=== PATIENT | female | born 1940 | race Caucasian/White ===

== ENCOUNTER 2017-08-14 10:25 | Emergency (ER) | payer OTHER ==
[~2017-08-14] VITALS: Ht 162.6 cm; Wt 88.5 kg
[~2017-08-14 10:25] MED LIST: Clonazepam0.5 MG PO; FLUSAL2505 INH; GABA300 PO; HYDCHL12.5 PO; Hydrocodone-Ap1 EA20 PO; IBUP400 PO; IBUP800 PO; LEVSOD75 PO; LEVSOD88 PO; LISI5 PO; LORA.5 PO; Nitrostat0.3 MG SL; OMEP40CA12 PO; OXYACE5T PO; Percocet 5-3251 EACH PO; ROSU5 PO; RXHYD5325 PO; SERT100 PO
== END 2017-08-14 12:30 | disposition home or self-care (01) ==
LOC: ER 10:25
DX: H57.11 Ocular pain, right eye (principal); J45.909 Unspecified asthma, uncomplicated; I50.9 Heart failure, unspecified; E78.00 Pure hypercholesterolemia, unspecified; E03.9 Hypothyroidism, unspecified; K21.9 Gastro-esophageal reflux disease without esophagitis; Z88.2 Allergy status to sulfonamides; Z88.1 Allergy status to other antibiotic agents; Z88.5 Allergy status to narcotic agent; Z88.8 Allergy status to other drugs, medicaments and biological substances; Z91.09 Other allergy status, other than to drugs and biological substances; Z79.899 Other long term (current) drug therapy; W40.8XXA Explosion of other specified explosive materials, initial encounter; Y92.481 Parking lot as the place of occurrence of the external cause
CPT/HCPCS: 99283; J7030

== ENCOUNTER → 2019-10-31 | Outpatient (CLI) | payer OTHER | END | disposition home or self-care (01) | LOC: LAB 18:18 → LAB SHORT 18:18 | DX: E03.9 Hypothyroidism, unspecified (principal) | CPT/HCPCS: 84443 ==

== ENCOUNTER 2020-12-04 11:26 | Day surgery (SDC) | payer OTHER ==
[~2020-12-04 11:26] MED LIST changes: +ABILIFY MYCITE5 M2 PO; +ALBU90OI INH; +DICLOFENAC SOD100 GM TOP; +FLUTICASONE-SA1 EAC1 INH; +LEVSOD112 PO; +LOSA25 PO; +OXAYDO5 M1 PO; +Percocet 10-321 EACH PO; +Robaxin750 MG PO; +ZOCOR20 MG PO
--- NOTE | 2020-12-04 12:05 | NUR ---
DR. ABDI AT BEDSIDE TO SPEAK WITH PT. PT REPORTS HAVING A FULL BREAKFAST THIS MORNING ABOUT 730. DR. ABDI REPORTS PT UNABLE TO GO TO SURGERY UNTIL ABOUT 1530. ANNALISA Martins RN TO CONTACT DR. KIRKLAND TO DETERMINE HOW HE WOULD LIKE TO PROCEED.
--- NOTE | 2020-12-04 12:40 | NUR ---
PER MD. PTS PROCEDURE CANCELLED AND PLAN TO RESCHEDULE UNTIL TOMORROW. RIDE ARRANGED WITH TRANSPORT TO TAKE PT BACK TO [facility]. SPOKE WITH THE NURSE AT [facility] AND EXPLAIN PLAN AND INSTRUCTED PT TO BE NPO AFTER MIDNIGHT. NEW EKG COMPLETED PER DR. ABDI'S REQUEST.
--- NOTE | 2020-12-04 12:45 | NUR ---
PT ASSISTED INTO NEW ATTENDS AND INTO WHEELCHAIR. D/C'D VIA WHEELCHAIR.
[2020-12-05] MEDS ORDERED: OMEP20ER PO (06:37)
[2020-12-05] MEDS ORDERED: SERT100 PO (06:38)
[2020-12-05] MEDS ORDERED: IBUP200 PO (06:40)
== END 2020-12-04 22:42 | disposition home or self-care (01) ==
LOC: ORSCMMR 11:26 → ORD 12:30 → ORSCMMR 22:42
DX: S42.292A Other displaced fracture of upper end of left humerus, initial encounter for closed fracture (principal); Z53.9 Procedure and treatment not carried out, unspecified reason; S43.005A Unspecified dislocation of left shoulder joint, initial encounter
CPT/HCPCS: 93005; 93010; J2704

== ENCOUNTER 2020-12-05 11:20 | Inpatient (IN) | payer OTHER, MEDICARE ==
[~2020-12-05] VITALS: Wt 80.9 kg
[~2020-12-05 11:20] MED LIST changes: +IBUP200 PO; +OMEP20ER PO
--- NOTE | 2020-12-05 13:30 | NUR ---
pt watching tv awaiting the or assisted to bathroom twice l arm elev in sling npo
--- NOTE | 2020-12-05 15:23 | NUR ---
message left with anne hernandez pt's blood pressure
--- NOTE | 2020-12-05 16:59 | NUR ---
pt transported to day surg via bed
--- NOTE | 2020-12-05 17:41 | NUR ---
DR. KIRKLAND SPOKE WITH PT IN [facility] AND STATED HER PROCEDURE WOULD BE POSTPONED UNTIL TOMORROW MORNING. PT STATED UNDERSTANDING. PT TRANSFERED VIA BED BACK TO SURGICAL FLOOR.
--- NOTE | 2020-12-05 18:15 | NUR ---
PT EATING DINNER SURG SCHED FOR SAT AWAITING ORDERS
--- NOTE | 2020-12-06 05:38 | NUR ---
SHIFT SUMMARY PT AOX4. VSS. HYPERTENSIVE AT THE BEGINNING OF SHIFT. CALLED DR. KIRKLAND TO RECONCILE MEDS, GOT A TELEPHONE ORDER TO RESTART HOME MEDS IN EMR. [place]AN, ABILIFY AND OXY APAP WAS GIVEN LAST NIGHT. PT REPORTS PAIN ON LEFT SHOULDER. L SHOULDER HAS SOME BRUISING AND ARM SLING IN PLACED. I REPLACED HER OLD ARM SLING BECAUSE IT WAS DIRTY. PT STS THAT IT WAS AN OLD SLING FROM REHAB, THAT WAS PREVIOUSLY USED BY ANOTHER PT. PT HAD 4 SMALL FORMED BOWEL MOVEMENT. FREQUENT URINATION BUT DENIES DYSURIA. NPO AFTER MIDNIGHT. IV ON R HAND. SALINE LOCKED. CALL LIGHT WITHIN REACH. WILL PROVIDE REPORT TO ONCOMING NURSE.
--- NOTE | 2020-12-06 12:50 | NUR ---
PT APPEARS TO BE RESTING COMFORTABLY EYES CLOSED RESP E/U WAKES EASILY TO VERBAL STIMULI VERBALLY DENIES PAIN OR NAUSEA WIGGLES FINGERS AND TAKES DEEP BREATH WHEN ASKED TO WARM BLANKETS FOR COMFORT DRSG CDI WAITING FOR XRAY
--- NOTE | 2020-12-06 18:31 | NUR ---
SHIFT SUMMARY PT A&OX4, VSS, S/P TSA, AQUACEL CDI/IMMOBILIZER ON, WIGGLES FINGERS. PAIN MANAGED WITH 10 MG PERC, TYLENOL, IBUPROFEN. IVF @ 70 MLS/HR WITH ABX ORDERED. MABEL PO, DENIES N&V. VOIDING WELL IN BSC POST OP. STAND TRANSFER TO BSC/BED/CHAIR, UP TO CHAIR FOR DINNER. WILL REPORT TO ONCOMING NOC NORA.
[2020-12-07 05:07] LABS: BASOPHILS ABSOLUTE AUTO 0.01 K/mm3 (0.00-0.23); BASOPHILS PERCENT AUTO 0 % (0-2); EOSINOPHILS PERCENT AUTO 0 % (0-6); Hematocrit 31.9 % (33.0-51.0); Hemoglobin 10.5 g/dL (11.5-16.0); IMMATURE GRAN ABSOLUTE AUTO 0.03 K/mm3 (0.00-0.10); IMMATURE GRAN PERCENT AUTO 0 % (0-1); LYMPHOCYTES ABSOLUTE AUTO 1.36 K/mm3 (0.84-5.20); LYMPHOCYTES PERCENT AUTO 15 % (21-46); MONOCYTES ABSOLUTE AUTO 0.86 K/mm3 (0.16-1.47); MONOCYTES PERCENT AUTO 9 % (4-13); Mean Corpuscular HGB 30.8 pg (26.0-34.0); Mean Corpuscular HGB Conc 32.9 g/dL (31.5-36.5); Mean Corpuscular Volume 94 fL (80-100); Mean Platelet Volume 9.9 fL (9.1-12.4); NEUTROPHILS ABSOLUTE AUTO 6.85 K/mm3 (1.96-9.15); NEUTROPHILS PERCENT AUTO 75 % (41-73); Platelet Count 244 K/mm3 (150-400); RDW Coefficient Variation 13.9 % (11.7-14.2); RDW Standard Deviation 47.3 fL (35.1-46.3); Red Blood Cell Count 3.41 M/mm3 (3.80-5.20); White Blood Cell Count 9.11 K/mm3 (4.00-11.30)
[2020-12-07 05:36] LABS: Bun/Creatinine Ratio 16.5 (12.0-20.0); Creatinine, Blood 1.76 mg/dL (0.40-1.00); Potassium, Blood 3.8 mmol/L (3.5-5.5)
--- NOTE | 2020-12-07 07:46 | NUR ---
PT A/OX4. VSS ON RA. PAIN MANAGED WELL W/ CURRENT PAIN MED REGIME. UP TO TOILET W/ CANE AND MIN ASSIST. SLEEPING B/W CARE. USING CALL LIGHT TO MAKE NEEDS KNOWN.
--- NOTE | 2020-12-07 16:50 | NUR ---
SHIFT SUMMARY PT A&OX4, VSS, POD1 L TSA IMMOBILIZER, ELEVATED, WIGGLES FINGERS, CAP REFILL WNL. PAIN MANAGED WITH 10 MG PERC PRN. MBAEL PO. VOIDING/BM TODAY. AMB W/ FWW & SBA TO BRP. UP TO CHAIR FOR MEALS. WILL REPORT TO ONCOMING NOC NORA.
--- NOTE | 2020-12-08 03:39 | NUR ---
PT A/OX4, FORGETFUL AT TIMES. PAIN MANAGED W/ PERCOCET AND IBUPROFEN. PT C/O INCREASED PAIN, 5MG OXYCODONE GIVEN W/ GOOD EFFECT. PT C/O OF NO BM IN COUPLE DAYS, MILK OF MAG GIVEN AND EFFECTIVE. UP TO TOILET W/ CANE AND SPLINT IN PLACE. USING CALL LIGHT TO MAKE NEEDS KNOWN. SLEEPING B/W CARE.
--- NOTE | 2020-12-08 12:05 | NUR ---
[facility]ul [facility]as, pt sleeping in bed, bed in lowest position, call light within reach, be rails up x 2
[2020-12-08 13:09] LABS: SARS-Cov-2 (COVID-19) PCR, MMC NEGATIVE (NEGATIVE)
--- NOTE | 2020-12-08 15:59 | NUR ---
patient has worked with PT/OT today; both modalities recommend SNF. 1530- rounding on pt, who is sitting up in chair with belongings packed; inquires as to when transport would be here to transfer her to SNF; this RN informed pt insurance approval is under review r/t home situation. pt informs this RN her daughter had stayed with her to assist with ADL's prior to surgical intervention. Her daughter does not normally live with her, and she has no paid caregiver who comes in to provide care.
--- NOTE | 2020-12-08 17:03 | NUR ---
shift summary: vss, no acute changes, pt remained a/o x 4, pleasant/cooperative. pt up to chair for meals and intermittently t/o shift. Operative LUE remained in immobilizer. pt utilizes cane to ambulated to bathroom and in hallway with standby assist. pt requires assistance with ADL's. Pt tolerated medicating for pain per MAR, reports pain controlled to "tolerable" levels upon reassessment. pt tolerated PO intake well, denies n/v. pt voiding and passing flatus this shift, denies N/V. L shoulder dressing remains c/d/i, no shadowing.
--- NOTE | 2020-12-09 04:20 | NUR ---
SHIFT SUMMARY NO ACUTE CHANGES THIS SHIFT. 2 ROXICODONE + SCHEDULED TYLENOL FOR PAIN. UP TO BATHROOM WITH 1 STANDBY ASSIST. LEFT ARM REMAINS IN IMMOBILIZER AND AQUACEL DRESSING REMAINS CDI. CARE MANAGMENT INVOLVED WITH DISCHARGE PLANNING. PT USES CALL LIGHT APPROPRIATELY.
--- NOTE | 2020-12-09 14:11 | NUR ---
12/09/20 1411 Jessica Maddox VERIFICATIONS: EDIT CHART.
--- NOTE | 2020-12-09 15:41 | NUR ---
PT WAS NOTIFIED EARLIER TODAY THAT HER INSURANCE DECLINED TO PAY FOR RESIDENTIAL. PT IS ATTEMPTING TO CONTEST HER DISCHARGE AT THIS TIME. SHE HAS CONTACTED [facility] SPECIFIED ON THE MEDICARE FORM. SHANNA MUNSON HAS BEEN NOTIFIED THAT PT IS CONTESTING HER DISCHARGE.
--- NOTE | 2020-12-09 16:28 | NUR ---
CONTESTED DISCHARGE PT CONTACTED PRO TO CONTEST HER DISCHARGE. MOHAN SHEETS FROM CARE MANAGEMENT NOTIFIED THIS RN THAT SHE NEEDED TO CONTACT [facility] . CUSTOMER SERVICE AT [facility] NOTIFIED THIS RN THAT SHE SHOULD CONTACK [facility] NUMBER IN ORDER TO CONTEST THE DISCHARGE. MOHAN SHEETS NOTIFIED THAT [facility] IS NOT INVOLVED IN CONTESTING THE DISCHARGE PER THE INTERNET CONSULTANT. PT IS AWAITING FURTHER INSTRUCTION IN PROCESS TO CONTEST DISCHARGE.
--- NOTE | 2020-12-09 16:48 | NUR ---
SHIFT SUMMARY PT IS POD#3 FROM L REVERSE TSA WITH DR. KIRKLAND. PAIN MANAGED WITH PO PAIN MEDICATION. PT WAS HOPING TO RETURN TO [facility] FOR SNF, PER CARE MANAGEMENT HER INSURANCE DECLINED. PT IS CONTESTING HER DISCHARGE AND REMAINS IN THE HOSPITAL AT THIS TIME. PT IS A 1 PERSON ASSIST WITH CANE WHEN AMBULATING. SHE DOES REQUIRE MUCH ASSISTANCE WITH ADL'S. WILL MONITOR UNTIL REPORT TO NOC RN.
--- NOTE | 2020-12-10 07:08 | NUR ---
SHIFT SUMMARY POD4 L REVERSE TOTAL SHOULDER, A/O X4, VSS, TOLERATING PO, PILLS IN APPLESAUCE, SBA TO BATHROOM, NWB LUE, PAIN MANAGED PER EMAR, NO ACUTE EVENTS THIS SHIFT. CALL LIGHT IN REACH, REPORT GIVEN TO DAY RN.
--- NOTE | 2020-12-10 16:29 | NUR ---
SHIFT SUMMARY PT A&OX4, VSS, POD4 L REVERSE TSA, IMMOBILIZER ON, WIGGLES FINGERS, CAP REFILL WNL. PAIN MANAGED WITH 10 MG PERC AND ALT MOTRIN/TYLENOL. MABEL PO. VOIDING WELL. AMB W/CANE, SBA, UP TO CHAIR T/O SHIFT. WILL REPORT TO ONCOMING NOC NORA.
--- NOTE | 2020-12-10 20:01 | NUR ---
IN CHAIR. RN NOTIFIED
--- NOTE | 2020-12-11 05:05 | NUR ---
SHIFT SUMMARY POD5 L REVERSE TSA. NO ACUTE CHANGES OVERNIGHT. R ARM WITH SLING. PT REPORTS MINIMAL PAIN. PT DENIES N/T. WIGGLES FINGERS WITH CAP REFILL WNL. PAIN MANAGED WITH TYLENOL AND OXICODONE. PT TOLERATING PO INTAKE. DENIES N/V. VOIDING WELL. PT HAD 1 SMEAR BM. AMBULATES WITH 1 SBA WITH HER CANE. CALL LIGHT WITHIN REACH. PLAN: WAITING FOR SNF PLACEMENT APPROVAL FROM INSURANCE. WILL PROVIDE REPORT TO ONCOMING NURSE.
[2020-12-11 12:32] LABS: SARS-Cov-2 (COVID-19) PCR, MMC NEGATIVE (NEGATIVE)
--- NOTE | 2020-12-11 13:22 | NUR ---
DISCHARGE SUMMARY PT A&OX4, VSS, VOIDING, TOLERATING PO, AMBULATING W/CANE TO BRP, UP TO CHAIR, PAIN MANAGED WITH 10 MG PERC, MOTRIN AND TYLENOL. REPORT PROVIDED TO BLAS AT [facility]. SCRIPT IN PACKET FOR TRANSPORT TO PROVIDE TO SNF.
== END 2020-12-11 13:58 | DRG 483 ==
LOC: ORSCMMR 11:20 → SURS 11:20 → ORSCMMR 11:21 → SURS 12:09 → ORSCMMR 12-06 11:57 → SURS 12-07 23:11 → ORSCMMR 12-07 23:11 → SURS 12-11 13:58
PROVIDERS: ADMIT Orthopaedic Surgery
PROC: 0RRK00Z Replacement of Left Shoulder Joint with Reverse Ball and Socket Synthetic Substitute, Open Approach (ICD-10-PCS; principal; 2020-12-05)
DX: S42.202A Unspecified fracture of upper end of left humerus, initial encounter for closed fracture (principal); Z20.822 Contact with and (suspected) exposure to COVID-19; J45.909 Unspecified asthma, uncomplicated; E78.5 Hyperlipidemia, unspecified; I10 Essential (primary) hypertension; E03.9 Hypothyroidism, unspecified; M06.9 Rheumatoid arthritis, unspecified; Z79.899 Other long term (current) drug therapy; Z88.1 Allergy status to other antibiotic agents; Z88.5 Allergy status to narcotic agent; Z88.8 Allergy status to other drugs, medicaments and biological substances; W18.30XA Fall on same level, unspecified, initial encounter; Y92.009 Unspecified place in unspecified non-institutional (private) residence as the place of occurrence of the external cause; Z88.2 Allergy status to sulfonamides
CPT/HCPCS: 36415; 73030; 80048; 85025; 94640; 94760; 97110; 97116; 97162; 97166; 97530; 97535; A9270; C1776; J0171; J0690; J1100; J2370; J2405; J2704; J3010; J7120; U0004

== ENCOUNTER → 2020-12-24 | Outpatient (CLI) | payer OTHER | END | disposition home or self-care (01) | LOC: LAB SHORT 19:22 → LAB 19:22 | DX: N39.0 Urinary tract infection, site not specified (principal) | CPT/HCPCS: 87077; 87086; 87186 ==

== ENCOUNTER → 2021-01-23 | Outpatient (CLI) | payer OTHER ==
[2021-01-23 13:56] LABS: Source, Urine Clean Catch
[2021-01-23 15:06] LABS: Appearance, Urine Hazy (Clear); Bilirubin, Urine Neg (Neg); Blood, Urine 2+ (Neg); Color, Urine Yellow (P-Yellow); Glucose Qualitative, Urine Neg (Neg); Ketones, Urine Neg (Neg); Leukocyte Esterase, Urine Neg (Neg); Nitrite, Urine Neg (Neg); Protein, Urine Neg (Neg); Urobilinogen, Urine NORM (Normal)
[2021-01-23 15:37] LABS: Squamous Epithelial Cells Few /hpf (Few)
[2021-01-23 15:38] LABS: Bacteria Many /hpf
== END | disposition home or self-care (01) ==
LOC: LAB SHORT 13:52
PROVIDERS: Family Medicine
DX: E78.5 Hyperlipidemia, unspecified (principal); I10 Essential (primary) hypertension
CPT/HCPCS: 81001; 87077; 87086; 87186

== ENCOUNTER → 2021-01-29 | Outpatient (CLI) | payer OTHER | END | disposition home or self-care (01) | LOC: LAB SHORT 09:15 → LAB FUT 01-28 12:40 | DX: R10.9 Unspecified abdominal pain (principal) | CPT/HCPCS: 87086 ==

== ENCOUNTER 2023-04-15 11:34 | Emergency (ER) | payer OTHER ==
[~2023-04-15] VITALS: Ht 162.6 cm; Wt 77.1 kg
[2023-04-15 11:38] VITALS: BP 130/84
[2023-04-15 12:54] LABS: BASOPHILS ABSOLUTE AUTO 0.02 K/mm3 (0.00-0.23); BASOPHILS PERCENT AUTO 1 % (0-2); EOSINOPHILS PERCENT AUTO 3 % (0-6); Hematocrit 39.7 % (33.0-51.0); Hemoglobin 13.2 g/dL (11.5-16.0); IMMATURE GRAN PERCENT AUTO 0 % (0-1); LYMPHOCYTES ABSOLUTE AUTO 1.31 K/mm3 (0.84-5.20); LYMPHOCYTES PERCENT AUTO 33 % (21-46); MONOCYTES PERCENT AUTO 10 % (4-13); Mean Corpuscular HGB 29.1 pg (26.0-34.0); Mean Corpuscular HGB Conc 33.2 g/dL (31.5-36.5); Mean Corpuscular Volume 88 fL (80-100); Mean Platelet Volume 10.1 fL (9.1-12.4); NEUTROPHILS ABSOLUTE AUTO 2.19 K/mm3 (1.96-9.15); NEUTROPHILS PERCENT AUTO 54 % (41-73); Platelet Count 162 K/mm3 (150-400); RDW Coefficient Variation 12.6 % (11.7-14.2); RDW Standard Deviation 40.4 fL (35.1-46.3); Red Blood Cell Count 4.53 M/mm3 (3.80-5.20); White Blood Cell Count 4.02 K/mm3 (4.00-11.30)
[2023-04-15 13:15] LABS: Albumin, Blood 3.3 g/dL (3.4-5.0); Bilirubin, Total 0.5 mg/dL (0.1-1.0); Bun/Creatinine Ratio 11.5 (12.0-20.0); Calcium, Blood 8.7 mg/dL (8.5-10.1); Creatinine, Blood 0.96 mg/dL (0.40-1.00); Globulin, Blood 3.3 g/dL (2.2-4.0); Potassium, Blood 4.2 mmol/L (3.5-5.5); Total Protein, Blood 6.6 g/dL (6.4-8.2)
== END 2023-04-15 15:07 | disposition home or self-care (01) ==
LOC: ER 11:34
PROVIDERS: Physician Assistant
DX: S39.011A Strain of muscle, fascia and tendon of abdomen, initial encounter (principal); E03.9 Hypothyroidism, unspecified; K21.9 Gastro-esophageal reflux disease without esophagitis; E78.5 Hyperlipidemia, unspecified; J45.909 Unspecified asthma, uncomplicated; X50.0XXA Overexertion from strenuous movement or load, initial encounter; Z88.2 Allergy status to sulfonamides; Z88.8 Allergy status to other drugs, medicaments and biological substances; Z88.1 Allergy status to other antibiotic agents; Z88.5 Allergy status to narcotic agent; Z79.899 Other long term (current) drug therapy
CPT/HCPCS: 71101; 74176; 80053; 85025; 96374; 99284-25; J3010

== ENCOUNTER → 2023-08-10 | Outpatient (CLI) | payer OTHER | LOC: LAB 16:13 → LAB SHORT 16:13 | DX: E03.9 Hypothyroidism, unspecified (principal); E55.9 Vitamin D deficiency, unspecified | CPT/HCPCS: 82306; 84443 ==

== ENCOUNTER → 2024-02-03 | Outpatient (CLI) | payer OTHER | END | disposition home or self-care (01) | LOC: LAB 16:26 → LAB SHORT 16:26 | DX: E03.9 Hypothyroidism, unspecified (principal) | CPT/HCPCS: 84443 ==

== ENCOUNTER → 2024-03-08 | Outpatient (CLI) | payer OTHER ==
[2024-03-08 15:44] LABS: BASOPHILS ABSOLUTE AUTO 0.02 K/mm3 (0.00-0.23); BASOPHILS PERCENT AUTO 1 % (0-2); EOSINOPHILS ABSOLUTE AUTO 0.13 K/mm3 (0.00-0.68); EOSINOPHILS PERCENT AUTO 3 % (0-6); Hematocrit 44.6 % (33.0-51.0); Hemoglobin 14.8 g/dL (11.5-16.0); IMMATURE GRAN ABSOLUTE AUTO 0.01 K/mm3 (0.00-0.10); IMMATURE GRAN PERCENT AUTO 0 % (0-1); LYMPHOCYTES ABSOLUTE AUTO 1.73 K/mm3 (0.84-5.20); LYMPHOCYTES PERCENT AUTO 40 % (21-46); MONOCYTES ABSOLUTE AUTO 0.31 K/mm3 (0.16-1.47); MONOCYTES PERCENT AUTO 7 % (4-13); Mean Corpuscular HGB Conc 33.2 g/dL (31.5-36.5); Mean Corpuscular Volume 87 fL (80-100); Mean Platelet Volume 10.8 fL (9.1-12.4); NEUTROPHILS ABSOLUTE AUTO 2.08 K/mm3 (1.96-9.15); NEUTROPHILS PERCENT AUTO 49 % (41-73); Platelet Count 200 K/mm3 (150-400); RDW Coefficient Variation 13.3 % (11.7-14.2); Red Blood Cell Count 5.11 M/mm3 (3.80-5.20); White Blood Cell Count 4.28 K/mm3 (4.00-11.30)
[2024-03-08 15:52] LABS: International Normalized Ratio 0.98; Prothrombin Time Results 10.5 Sec (9.7-11.5)
== END | disposition home or self-care (01) ==
LOC: LAB 14:52 → LAB SHORT 14:52
PROVIDERS: Nurse Practitioner Family
DX: E03.9 Hypothyroidism, unspecified (principal); R58 Hemorrhage, not elsewhere classified
CPT/HCPCS: 84443; 85025; 85610

== ENCOUNTER → 2024-07-31 | Outpatient (CLI) | payer OTHER | LOC: LAB 11:15 → LAB SHORT 11:15 | DX: E03.9 Hypothyroidism, unspecified (principal) | CPT/HCPCS: 84443 ==

== ENCOUNTER → 2024-11-15 | Outpatient (CLI) | payer OTHER ==
[2024-11-15 19:16] LABS: Bacterial Vaginosis PCR Negative (NEGATIVE); Candida Group, PCR NOT DETECTED (NOT DETECT); Candida glabrata-krusei, PCR NOT DETECTED (NOT DETECT)
== END ==
LOC: LAB 15:00 → LAB SHORT 15:00
PROVIDERS: Family Medicine
DX: N76.0 Acute vaginitis (principal)
CPT/HCPCS: 81515

== ENCOUNTER 2025-01-12 14:29 | Emergency (ER) | payer OTHER ==
[~2025-01-12] VITALS: Ht 162.6 cm; Wt 95.2 kg
[2025-01-12 15:06] LABS: BASOPHILS ABSOLUTE AUTO 0.03 K/mm3 (0.00-0.23); BASOPHILS PERCENT AUTO 1 % (0-2); EOSINOPHILS ABSOLUTE AUTO 0.03 K/mm3 (0.00-0.68); EOSINOPHILS PERCENT AUTO 1 % (0-6); Hematocrit 42.0 % (33.0-51.0); Hemoglobin 14.3 g/dL (11.5-16.0); IMMATURE GRAN ABSOLUTE AUTO 0.01 K/mm3 (0.00-0.10); IMMATURE GRAN PERCENT AUTO 0 % (0-1); LYMPHOCYTES ABSOLUTE AUTO 1.15 K/mm3 (0.84-5.20); LYMPHOCYTES PERCENT AUTO 18 % (21-46); MONOCYTES ABSOLUTE AUTO 0.28 K/mm3 (0.16-1.47); MONOCYTES PERCENT AUTO 4 % (4-13); Mean Corpuscular HGB Conc 34.0 g/dL (31.5-36.5); Mean Corpuscular Volume 86 fL (80-100); NEUTROPHILS ABSOLUTE AUTO 5.05 K/mm3 (1.96-9.15); NEUTROPHILS PERCENT AUTO 77 % (41-73); NRBC ABSOLUTE 0.00 K/mm3 (0.00-0.02); NRBC Auto 0.0 /100 WBC (0.0-0.2); Platelet Count 192 K/mm3 (150-400); RDW Coefficient Variation 12.5 % (11.7-14.2); RDW Standard Deviation 39.5 fL (35.1-46.3)
[2025-01-12 15:13] LABS: Source, Urine Clean Catch
[2025-01-12 15:15] LABS: Bilirubin, Urine Neg (Neg); Glucose Qualitative, Urine Neg (Neg); Ketones, Urine Neg (Neg); Leukocyte Esterase, Urine 1+ (Neg); Protein, Urine Neg (Neg); Specific Gravity, Urine 1.010 (1.003-1.022); Urobilinogen, Urine NORM (Normal)
[2025-01-12 15:17] LABS: Color, Urine Yellow (P-Yellow)
[2025-01-12 15:21] LABS: Ethanol (Alcohol), Blood, Med <3 mg/dL
[2025-01-12 15:26] LABS: U Amphetamine Screen Not Detected; U Barbituate Screen Not Detected; U Benzodiazapine Screen Not Detected; U Buprenorphine Screen Not Detected; U Cannabinoids Screen Not Detected; U Cocaine Screen Not Detected; U Methadone Screen Not Detected; U Methamphetamine Screen Not Detected; U Opiates Screen Not Detected; U Oxycodone Screen DETECTED; U Phencyclidine Screen Not Detected
[2025-01-12 15:32] LABS: Salicylate <1.7 mg/dL (2.8-20.0); Thyroid Stimulating Hormone 0.835 uIU/mL (0.360-4.800)
[2025-01-12 15:33] LABS: Acetaminophen, Random <2.0 ug/mL (10.0-30.0); Alanine Aminotransfer (ALT/SGP 21 U/L (12-78); Albumin, Blood 3.6 g/dL (3.4-5.0); Albumin/Globulin Ratio 0.9 (0.8-1.8); Anion Gap 9 mmol/L (3-11); Aspartate Aminotrans (AST/SGOT 26 U/L (12-37); Bilirubin, Total 0.5 mg/dL (0.1-1.0); Blood Urea Nitrogen 12 mg/dL (8-24); CO2, Blood 24 mmol/L (21-32); Calcium, Blood 9.1 mg/dL (8.5-10.1); Chloride, Blood 110 mmol/L (98-108); Creatinine, Blood 0.89 mg/dL (0.40-1.00); Globulin, Blood 3.9 g/dL (2.2-4.0); Glucose, Blood 129 mg/dL (70-99); Potassium, Blood 4.1 mmol/L (3.5-5.5); Sodium, Blood 139 mmol/L (136-145); Total Protein, Blood 7.5 g/dL (6.4-8.2)
[2025-01-12 19:44] LABS: Alanine Aminotransfer (ALT/SGP 21.0 U/L (12-78); Albumin, Blood 3.6 g/dL (3.4-5.0); Albumin/Globulin Ratio 0.9 (0.8-1.8); Anion Gap 10.0 mmol/L (3-11); Aspartate Aminotrans (AST/SGOT 25.0 U/L (12-37); Bilirubin, Total 0.7 mg/dL (0.1-1.0); Blood Urea Nitrogen 11.0 mg/dL (8-24); CO2, Blood 24.0 mmol/L (21-32); Calcium, Blood 9.2 mg/dL (8.5-10.1); Chloride, Blood 109.0 mmol/L (98-108); Creatinine, Blood 0.86 mg/dL (0.40-1.00); Globulin, Blood 3.9 g/dL (2.2-4.0); Glucose, Blood 131.0 mg/dL (70-99); Potassium, Blood 3.9 mmol/L (3.5-5.5); Sodium, Blood 139.0 mmol/L (136-145); Total Protein, Blood 7.5 g/dL (6.4-8.2)
[2025-01-12 20:07] VITALS: BP 159/78
== END 2025-01-12 19:57 | disposition home or self-care (01) ==
LOC: ER 14:29
PROVIDERS: Emergency Medicine
DX: T42.6X1A Poisoning by other antiepileptic and sedative-hypnotic drugs, accidental (unintentional), initial encounter (principal); T40.2X1A Poisoning by other opioids, accidental (unintentional), initial encounter; M19.90 Unspecified osteoarthritis, unspecified site; K21.9 Gastro-esophageal reflux disease without esophagitis; E03.9 Hypothyroidism, unspecified; J45.909 Unspecified asthma, uncomplicated; Z79.899 Other long term (current) drug therapy; Z79.51 Long term (current) use of inhaled steroids; Z88.2 Allergy status to sulfonamides; Z88.5 Allergy status to narcotic agent; Z91.041 Radiographic dye allergy status; Z88.8 Allergy status to other drugs, medicaments and biological substances
CPT/HCPCS: 80053; 80320; 81001; 83735; 84439; 84443; 85025; 87086; 93005; 93010; 99284-25; G0480

== ENCOUNTER 2025-02-10 13:01 | Emergency (ER) | payer OTHER ==
[~2025-02-10] VITALS: Ht 157.5 cm; Wt 75.8 kg
[2025-02-10 13:24] VITALS: BP 135/98
[2025-02-10 13:45] LABS: BASOPHILS ABSOLUTE AUTO 0.03 K/mm3 (0.00-0.23); BASOPHILS PERCENT AUTO 0 % (0-2); EOSINOPHILS ABSOLUTE AUTO 0.01 K/mm3 (0.00-0.68); EOSINOPHILS PERCENT AUTO 0 % (0-6); Hematocrit 42.2 % (33.0-51.0); Hemoglobin 14.7 g/dL (11.5-16.0); IMMATURE GRAN ABSOLUTE AUTO 0.02 K/mm3 (0.00-0.10); IMMATURE GRAN PERCENT AUTO 0 % (0-1); LYMPHOCYTES ABSOLUTE AUTO 1.69 K/mm3 (0.84-5.20); LYMPHOCYTES PERCENT AUTO 23 % (21-46); MONOCYTES ABSOLUTE AUTO 0.50 K/mm3 (0.16-1.47); MONOCYTES PERCENT AUTO 7 % (4-13); Mean Corpuscular HGB Conc 34.8 g/dL (31.5-36.5); Mean Corpuscular Volume 86 fL (80-100); NEUTROPHILS ABSOLUTE AUTO 5.19 K/mm3 (1.96-9.15); NEUTROPHILS PERCENT AUTO 70 % (41-73); NRBC ABSOLUTE 0.00 K/mm3 (0.00-0.02); NRBC Auto 0.0 /100 WBC (0.0-0.2); Platelet Count 217 K/mm3 (150-400); RDW Coefficient Variation 13.3 % (11.7-14.2); RDW Standard Deviation 41.2 fL (35.1-46.3)
[2025-02-10 14:13] LABS: Alanine Aminotransfer (ALT/SGP 30.0 U/L (12-78); Albumin, Blood 4.0 g/dL (3.4-5.0); Albumin/Globulin Ratio 1.2 (0.8-1.8); Anion Gap 11.0 mmol/L (3-11); Aspartate Aminotrans (AST/SGOT 33.0 U/L (12-37); Bilirubin, Total 0.5 mg/dL (0.1-1.0); Blood Urea Nitrogen 11.0 mg/dL (8-24); CO2, Blood 23.0 mmol/L (21-32); Calcium, Blood 9.5 mg/dL (8.5-10.1); Chloride, Blood 108.0 mmol/L (98-108); Creatinine, Blood 0.96 mg/dL (0.40-1.00); Globulin, Blood 3.3 g/dL (2.2-4.0); Glucose, Blood 153.0 mg/dL (70-99); Potassium, Blood 3.7 mmol/L (3.5-5.5); Sodium, Blood 138.0 mmol/L (136-145); Total Protein, Blood 7.3 g/dL (6.4-8.2)
[2025-02-10] MEDS ORDERED: Pantoprazole Sodium 40 MG Injection IV ONE (15:05)
[2025-02-10] MEDS ORDERED: Ondansetron HCl 2 MG / ML 2ML Vial IV ONE (15:05)
[2025-02-10] MEDS ORDERED: Milk 150ML/Molasses 150ML (300ML Total) PR ONE (17:00)
== END 2025-02-10 18:17 | disposition home or self-care (01) ==
LOC: ER 13:01
PROVIDERS: Physician Assistant
DX: K56.609 Unspecified intestinal obstruction, unspecified as to partial versus complete obstruction (principal); J18.9 Pneumonia, unspecified organism; I10 Essential (primary) hypertension; Z88.2 Allergy status to sulfonamides; Z88.8 Allergy status to other drugs, medicaments and biological substances; Z88.5 Allergy status to narcotic agent; Z88.1 Allergy status to other antibiotic agents; Z79.899 Other long term (current) drug therapy; Z79.890 Hormone replacement therapy
CPT/HCPCS: 74018; 74177; 80053; 85025; A9270; J2405; J2470; Q9967

== ENCOUNTER 2025-02-15 10:31 | Emergency (ER) | payer OTHER ==
[~2025-02-15] VITALS: Ht 162.6 cm; Wt 72.6 kg
[2025-02-15 11:05] LABS: BASOPHILS ABSOLUTE AUTO 0.02 K/mm3 (0.00-0.23); BASOPHILS PERCENT AUTO 0 % (0-2); EOSINOPHILS ABSOLUTE AUTO 0.01 K/mm3 (0.00-0.68); EOSINOPHILS PERCENT AUTO 0 % (0-6); Hematocrit 42.2 % (33.0-51.0); Hemoglobin 14.6 g/dL (11.5-16.0); IMMATURE GRAN ABSOLUTE AUTO 0.01 K/mm3 (0.00-0.10); IMMATURE GRAN PERCENT AUTO 0 % (0-1); LYMPHOCYTES ABSOLUTE AUTO 1.56 K/mm3 (0.84-5.20); LYMPHOCYTES PERCENT AUTO 23 % (21-46); MONOCYTES ABSOLUTE AUTO 0.43 K/mm3 (0.16-1.47); MONOCYTES PERCENT AUTO 6 % (4-13); Mean Corpuscular HGB Conc 34.6 g/dL (31.5-36.5); Mean Corpuscular Volume 88 fL (80-100); NEUTROPHILS ABSOLUTE AUTO 4.76 K/mm3 (1.96-9.15); NEUTROPHILS PERCENT AUTO 70 % (41-73); NRBC ABSOLUTE 0.00 K/mm3 (0.00-0.02); NRBC Auto 0.0 /100 WBC (0.0-0.2); Platelet Count 238 K/mm3 (150-400); RDW Coefficient Variation 13.7 % (11.7-14.2); RDW Standard Deviation 43.9 fL (35.1-46.3)
[2025-02-15 11:32] LABS: Alanine Aminotransfer (ALT/SGP 34.0 U/L (12-78); Albumin, Blood 3.9 g/dL (3.4-5.0); Albumin/Globulin Ratio 1.1 (0.8-1.8); Anion Gap 13.0 mmol/L (3-11); Aspartate Aminotrans (AST/SGOT 39.0 U/L (12-37); Bilirubin, Total 0.7 mg/dL (0.1-1.0); Blood Urea Nitrogen 11.0 mg/dL (8-24); CO2, Blood 23.0 mmol/L (21-32); Calcium, Blood 9.3 mg/dL (8.5-10.1); Chloride, Blood 107.0 mmol/L (98-108); Creatinine, Blood 0.96 mg/dL (0.40-1.00); Globulin, Blood 3.5 g/dL (2.2-4.0); Glucose, Blood 119.0 mg/dL (70-99); Magnesium, Blood 2.2 mg/dL (1.6-2.4); Phosphorus, Blood 1.9 mg/dL (2.5-4.9); Potassium, Blood 3.9 mmol/L (3.5-5.5); Sodium, Blood 139.0 mmol/L (136-145); Total Protein, Blood 7.4 g/dL (6.4-8.2)
[2025-02-15] MEDS ORDERED: Lactulose 200 GM/300 ML Enema 300ML BTL PR ONE (12:05)
[2025-02-15] MEDS ORDERED: Lidocaine 2% Viscous Soln 15 ML UDC PO ONE (12:55)
[2025-02-15 15:22] VITALS: BP 169/66
[2025-02-15] MEDS ORDERED: NYST237S MT (15:31)
== END 2025-02-15 16:00 | disposition home or self-care (01) ==
LOC: ER 10:31
PROVIDERS: Physician Assistant
DX: K59.00 Constipation, unspecified (principal); R19.7 Diarrhea, unspecified; I10 Essential (primary) hypertension; Z88.2 Allergy status to sulfonamides; Z88.5 Allergy status to narcotic agent; Z88.8 Allergy status to other drugs, medicaments and biological substances; Z91.041 Radiographic dye allergy status; Z79.899 Other long term (current) drug therapy
CPT/HCPCS: 74018; 74177; 80053; 83735; 84100; 85025; 87015; 87045; 87046; 87205; 87899; 93005; 93010; 99284-25; A9270; Q9967

== ENCOUNTER 2025-03-06 12:47 | Emergency (ER) | payer OTHER ==
[~2025-03-06] VITALS: Ht 152.4 cm; Wt 72.6 kg
[~2025-03-06 12:47] MED LIST changes: +NYST237S MT
[2025-03-06] MEDS ORDERED: FentaNYL Citrate 50 MCG/ML 2 ML Injection IV ONE (13:05)
[2025-03-06] MEDS ORDERED: Ondansetron HCl 2 MG / ML 2ML Vial IV ONE (13:05)
[2025-03-06] MEDS ORDERED: OxyCODONE 10/Acetamin 325 TABLET PO ONE (14:35)
[2025-03-06] MEDS ORDERED: OxyCODONE 5 mg/Acetamin 325 mg TABLET PO PRN (16:40)
[2025-03-06] MEDS ORDERED: NYSTATIN100000 U13 PO (17:15)
[2025-03-06] MEDS ORDERED: Bentyl10 MG PO (17:16)
[2025-03-06] MEDS ORDERED: NYSTOP15 GM TOP (17:17)
[2025-03-06] MEDS ORDERED: DONEPEZIL HCL5 M2 PO (17:17)
[2025-03-06] MEDS ORDERED: ESTRADIOL42.5 GM VG (17:18)
[2025-03-06] MEDS ORDERED: TRELEGY ELLIPT1 EACH IH (17:18)
[2025-03-06] MEDS ORDERED: Diflucan100 MG PO (17:20)
[2025-03-06] MEDS ORDERED: Albuterol HFA200 ACT/6.7 GM INH INH PRN (22:10)
[2025-03-07 07:27] VITALS: BP 120/68
[2025-03-07] MEDS ORDERED: VITAMIN D310 MC4 PO (11:10)
[2025-03-07] MEDS ORDERED: DICLOFENAC SOD100 GM (11:13)
[2025-03-07] MEDS ORDERED: DOCU100 PO (11:14)
[2025-03-07] MEDS ORDERED: FAMO20 PO (11:15)
[2025-03-07] MEDS ORDERED: POLY500 PO (11:16)
[2025-03-07] MEDS ORDERED: CALCIUM CARBON500 M1 PO (11:20)
[2025-03-07] MEDS ORDERED: SENNA LAXATIVE8.6 MG PO (11:22)
== END 2025-03-07 19:30 | disposition home or self-care (01) ==
LOC: ER 12:47
DX: S42.211A Unspecified displaced fracture of surgical neck of right humerus, initial encounter for closed fracture (principal); S42.291A Other displaced fracture of upper end of right humerus, initial encounter for closed fracture; S42.251A Displaced fracture of greater tuberosity of right humerus, initial encounter for closed fracture; S00.81XA Abrasion of other part of head, initial encounter; I10 Essential (primary) hypertension; K21.9 Gastro-esophageal reflux disease without esophagitis; E78.5 Hyperlipidemia, unspecified; Z23 Encounter for immunization; Z88.2 Allergy status to sulfonamides; Z88.5 Allergy status to narcotic agent; Z88.1 Allergy status to other antibiotic agents; Z88.8 Allergy status to other drugs, medicaments and biological substances; Z79.899 Other long term (current) drug therapy
CPT/HCPCS: 70450; 71250; 73030; 73140; 74176; 90471; 90715; 96374; 96375; 97161; 97530; 99285-25; A9270; J2405; J3010